=== PATIENT | female | born 1995 ===

== ENCOUNTER → 2017-07-30 | Outpatient (CLI) | payer OTHER ==
[~2017-07-30] MED LIST: AMO250L PO; DIPH0.5D12 IM; ETON1VAG7 VG; HYDEL PO; MIGRAINE PILL; NITR-105 PO; ONDA4TAB PO; PREN1TAB44; RIZA10TA PO; TOPI-120 PO
[2017-07-30 15:18] LABS: PLATELET COUNT, AUTOMATED 379 K/uL (150-450)
== END ==
LOC: LAB 13:34
PROVIDERS: ATTEND Student in an Organized Health Care Education/Training Program
DX: Z34.02 Encounter for supervision of normal first pregnancy, second trimester (principal)
CPT/HCPCS: 36415; 82950; 85025

== ENCOUNTER → 2017-10-09 | Outpatient (CLI) | payer OTHER | LOC: LAB 13:32 | PROVIDERS: ATTEND Student in an Organized Health Care Education/Training Program | DX: Z34.92 Encounter for supervision of normal pregnancy, unspecified, second trimester (principal) | CPT/HCPCS: 87081 ==

== ENCOUNTER 2017-10-18 09:42 | Inpatient (IN) | payer OTHER ==
[~2017-10-18] VITALS: Ht 149.9 cm; Wt 80.3 kg
[2017-10-18] MEDS ORDERED: ceFAZolin(*) 2GM/D5W 50ML 50 ML IVPB PRN (09:46)
[2017-10-18] MEDS ORDERED: FAMOTIDINE(*) 20MG/50ML PREMIX 50 ML IVPB PRN (09:46)
[2017-10-18] MEDS ORDERED: OXYTOCIN 30 UNIT/D5LR 500 ML 500 ML IV PRN ×2 (09:46)
[2017-10-18 09:50] VITALS: BP 114/73; Ht 149.9 cm; Wt 80.3 kg
[2017-10-18] MEDS ORDERED: FLUSH 10 ML SYR IVP PRN (09:50)
[2017-10-18] MEDS ORDERED: METOCLOPRAMIDE 10 MG/2 ML SDV IVP PRN (09:50)
[2017-10-18] MEDS ORDERED: LIDOCAINE/SOD BICARB 8.4% SYR SC PRN (09:50)
[2017-10-18] MEDS ORDERED: TERBUTALINE SULF 1 MG/ML VIAL SUBQ PRN (09:50)
[2017-10-18] MEDS ORDERED: fentaNYL CITR 100 MCG/2 ML AMP IVP PRN (09:50)
[2017-10-18] MEDS ORDERED: LIDOCAINE 1% LOCAL 300 MG/30ML INJ PRN (09:50)
[2017-10-18 10:14] LABS: PLATELET COUNT, AUTOMATED 318 K/uL (150-450)
[2017-10-18] MEDS: LR(*) 1000 ML BAG 1,000 ML IV SCH ×2 (11:25→20:15)
--- NOTE | 2017-10-18 11:47 | History & Physical ---
History of Present Illness Age of Patient: 22 : 1 Para or TPAL: 0 EDC per LMP: Nov 02, 2017 Estimated Gestational Age: 37.6 Chief Complaint Water broke History of Present Illness Pt is a 22 y/o @ 37-6/7 weeks gestation who presents to L&D after being sent from clinic for her water being broken. Pt reports her water may have broke last night around 5 pm. Denies any contractions. Good movement. No vaginal bleeding. History Patient's Blood Type: B Positive Rubella Status: Immune Group B Strep Screen: Negative Obstetrical History: Primigravid Past Medical History: Migraines Allergies: Coded Allergies: No Known Drug Allergies (Verified , 09/09/13) Social History: Denies ETOH, Rec drugs, or tobacco S/O Dirk Family History: FH: depression MOTHER Med Rec Home Meds Reported Medications Vit No.124/Iron/FA ( Vitamin Tablet) 1 Each Tablet, BID 07/30/17 Rizatriptan Benzoate (MAXALT) 10 Mg Tablet, 1 TAB PO PRN Y for HEADACHE 11/10/16 Review of Systems All Systems Reviewed/Normal: Yes, Except as Noted Constitutional: No Fever, No Weight Loss, No Weight Gain, No Chills, No Night Sweats, No Other Neurological: No Syncope, No Confusion, No Weakness, No Dizziness, No Slurred Speech, No Other Eyes: No Vision Change, No Loss of Vision, No Photophobia, No Other ENT: No Hearing Loss, No Sinus Congestion, No Sore Throat, No Ear Ache, No Tinnitus, No Other Cardiovascular: No Chest Pain, No Palpitations, No Orthostatic Hypotension, No Other Respiratory: No Shortness of Breath, No Cough, No Wheezing, No Other Gastrointestinal: No Nausea, No Vomiting, No Diarrhea, No Dysphagia, No Constipation, No Early Satiety, No Hematemesis, No Hematochezia, No Melena, No Abdominal Pain, No Other Genitourinary: No Dysuria, No Hematuria, No Urinary Incontinence, No Other Musculoskeletal: No Pain, No Sprain, No Strain, No Impaired Mobility, No Other Psychiatric: No Depression, No Anxiety, No Other Exam General Exam Vital Signs Vital Signs Date Time Temp Pulse Resp B/P (MAP) Pulse Ox O2 Delivery O2 Flow Rate FiO2 10/18/17 09:50 97.7 88 18 114/73 (87) Room Air General Apperance: Alert/Awake/No Acute Distress Neuro: No Gross deficits Eyes: Normal Extraocular Movement & Vison, PERRLA ENT: Normal Cardiovascular: Regular Rate and Rhythm Respiratory: No Respiratory Distress, Clear to Auscultation Abdomen: Soft, Non-Tender, Non-Distended : Normal Musculoskeletal: No Weakness/Pain Extremities: No Cyanosis,Clubbing or Edema Integumentary: Skin Intact without Lesions or Rash Psychological: Alert & Oriented X3, Appropriate Mood & Affect Vaginal Discharge/Fluid?: Clear Fluid Cervical Dialation: 1 Cervical Effacement (%): 50 Cervical Consistency: Soft Cervical Position: Mid Station: -3 Presentation: Vertex Uterine Contractions(Q min): 2 Uterine Contraction Strength: Mild UC Resting Tone: Soft Fetus Feeling Movement?: Yes Estimated Weight(grams): 3200 Heart Tones: 145 Heart Tone Variabilty: Moderate FHT Accelerations: 15X15 FHT Decelerations: None FHT Category: I Medical Decision Making Data Points Result Diagram: 10/18/17 1002 Pre-Admit Course Medical Record Review: Yes Assessment and Plan 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 GBS negative. Expect . DIRK HAYES DO Oct 18, 2017 11:47
--- NOTE | 2017-10-18 17:49 | Labor Progress Note ---
Labor Subjective Progress Notes Subjective Doing good. Reports she is starting to feel her contractions and having to breath through them. Still no epidural. Feeling Movement?: Yes Vaginal Discharge/Fluid: Bloody Show, Clear Fluid Labor Pain: Moderate Neurological: No Headache, No Other Eyes: No Visual Disturbances Labor Objective Vital Signs Vital Signs Date Time Temp Pulse Resp B/P (MAP) Pulse Ox O2 Delivery O2 Flow Rate FiO2 10/18/17 09:50 97.7 88 18 114/73 (87) Room Air Cervical Dialation: 2 Cervical Effacement (%): 60 Cervical Consistency: Soft Cervical Position: Mid Station: -2 Presentation: Vertex Uterine Contractions(Q min): 0 Uterine Contraction Strength: Moderate UC Resting Tone: Soft Fetus Heart Tones: 130 Heart Tone Variabilty: Minimal, Moderate FHT Accelerations: 15X15 FHT Decelerations: None FHT Category: I Other Result Diagram: 10/18/17 1002 Assessment and Plan 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 Continue to increase oxytocin to adaquete pattern. Pt will likely get epidural. If not making change consider internal monitors. DIRK HAYES DO Oct 18, 2017 17:49
[2017-10-18] MEDS ORDERED: EPIDURAL KEYS XX PRN (19:24)
[2017-10-18] MEDS ORDERED: fentaNYL CITR 100 MCG/2 ML AMP IT PRN (19:25)
[2017-10-18] MEDS ORDERED: FENTANYL/ROPIVACAINE 100 ML BAG EPI PRN (19:25)
[2017-10-18] MEDS ORDERED: BUPIVACAINE 0.5% INJ 30ML VIAL EPI PRN (19:25)
[2017-10-18] MEDS ORDERED: BUPIVACAINE 0.25% MPF INJ EPI PRN (19:25)
[2017-10-18] MEDS ORDERED: LIDOCAINE/PF 2% 200MG/10ML AMP 200 MG/10 ML AMPUL EPI PRN (19:25)
[2017-10-18] MEDS ORDERED: LIDO/EPI 2% MPF 1:200,000 20ML EPI PRN (19:25)
--- NOTE | 2017-10-18 19:26 | Anesthesia OB Pre-Anes Eval ---
History of Present Illness Anesthesia Start Date: Oct 18, 2017 Anesthesia Start Time: 19:25 OB Anesthesia Diagnosis: spontaneous ROM Complications: None known EDC: Nov 02, 2017 : 1 Para: 0 Vital Signs: Vital Signs Date Time Temp Pulse Resp B/P (MAP) Pulse Ox O2 Delivery O2 Flow Rate FiO2 10/18/17 09:50 97.7 88 18 114/73 (87) Room Air Pain Ratin Heart Tones: WNL Result Diagram: 10/18/17 1002 Height (Inches): 59.00 Weight (Pounds): 177 BMI Calculated: 35.75 Past Medical History Medical History: no pertinent history Surgical History: tonsillectomy Previous Anesthesia: general Hx Anesthesia Reactions: No Hx Family Anesthesia Reaction: No Current Medications: pitocin Home Meds Reported Medications Vit No.124/Iron/FA ( Vitamin Tablet) 1 Each Tablet, BID 07/30/17 Rizatriptan Benzoate (MAXALT) 10 Mg Tablet, 1 TAB PO PRN Y for HEADACHE 11/10/16 Allergies: Coded Allergies: No Known Drug Allergies (Verified , 09/09/13) Anesthesia OB ROS Neurological: migraines/headaches, No seizures, No neuropathy, No other ENT: Denies Tooth caps, Denies Loose teeth, Denies Chipped teeth, Denies Dentures, Denies Bridges, Denies Retainers, Denies Veneers, Denies Implants, Denies Tongue ring Pulmonary: No asthma, No smoker (pks/day/yrs) Airway Class: ll Cardiovascular ROS: No edema, No arrhythmia GI ROS: clear liquids Last Solids Date: Oct 18, 2017 Last Solids Time: 08:00 ROS: No Herpes, No STD(s), No Liver Disease, No Renal Disease Endocrine ROS: No diabetes, No gestational diabetes, No thyroid disorder Musculoskeletal ROS: No low back pain, No low back injury, No scoliosis, other ASA Classification: 2 Assessment and Plan Anesthesia Plan: CSE Assessment Past Medical, Surgical, Family and Obstetric Histories reviewed. Please see ACOG chart. Epidural anesthesia risks, complications and benefits explained to patient's satisfaction for labor and vaginal delivery and/or section. General anesthesia risks and benefits explained to patient's satisfaction. Questions invited, none asked. JUAN FARMER CRNA Oct 18, 2017 19:26
[2017-10-18] MEDS ORDERED: BUPIVACAINE 0.25% MPF INJ ONE (19:39)
[2017-10-18] MEDS ORDERED: fentaNYL CITR 100 MCG/2 ML AMP ONE (19:40)
[2017-10-18] MEDS ORDERED: FENTANYL/ROPIVACAINE 100ML BAG 100 ML ONE (19:41)
--- NOTE | 2017-10-18 20:46 | Procedure Note ---
Anesthetic Placement Note Anesthesia Plan: CSE Permit for Anesthesia Signed: Yes Anesthesia Technique: Patient Sitting Anesthesia Prep: Chlorhexidine Interspace: L 3-4 Local Anesthetic: 1% Lidocaine, 25 Gauge Needle Amount Local - cc's: 2 Anesthesia Needle: 17g Angelouhluke/Vinnie Loss of Resistance: Air Depth of NORA (cm): 6 Epidural Needle Placement: No CSF, No Blood, No Parasthesia Intrathecal Needle: 27 Gauge Pencan Cerebral Spinal Fluid: Yes, Clear Catheter Insertion (cm): 9 Catheter Type: Kyle - Spring Wound Epidural Dressing: Tegaderm, Tape, Adhesive [place] Anesthesia Tray: Lot Number ([id number]), Expiration Date (2018-11-16), Reference Number ([id number]) Anesthesia Medications: Intrathecal Dose: mcg Fentanyl (15), mg Marcaine MPF (1.75), Time (1946) Epidural Test Dose: 1.5 Lido/Epi (1:200,000), Dose - mL (3), Time (2008), Negative Epidural Loading Dose: 0.2% Ropivicaine, With Fentanyl 2mcg/ml, Dose - ml (5), Time (2011) Epidural Infusion: 0.2% Ropivicaine, With Fentanyl 2mcg/ml, Start Time: (2011) Epidural Pump Setting: Bolus Dose - mL (5), Lockout - Minutes (20), Maintenance Rate - mL/hr (5), Maximum per Hour - mL (20) Complications: None Comment: Pt. tolerated procedure very well. Became comfortable within 5-7 minutes after intrathecal injection. Pt. encouraged to sleep. JUAN FARMER CRNA Oct 18, 2017 20:46
--- NOTE | 2017-10-19 02:40 | Anesthesia Progress Note ---
Progress/Maintenance Anesthesia Note Date: Oct 19, 2017 Anesthesia Note Time: 02:20 Pain Intensity: 6 Pump: On Pump Rate (ML/HR): 5 Sensory Level: t-12 Motor Level: Bending Knees-Bilateral Dilatation: 5 Position: Right, Tilt Drug Bolus: 0.5% Marcaine (3 ML), Other (fENTENYL 50 MCGS) Assessment and Plan Assessment Comfort level has been managed with bolus per pump. First bolus provided adequate relief but not the second. Manual bolus given and pt. states she now feels much better. Laying on rt. side, which is the side she was feeling the strong contractions. JUAN FARMER MOTOR VEHICLE LIGHT ASSEMBLER Oct 19, 2017 02:40
[2017-10-19] MEDS: LR(*) 1000 ML BAG 1,000 ML IV SCH ×2 (03:48→11:46)
--- NOTE | 2017-10-19 04:38 | Anesthesia Progress Note ---
Progress/Maintenance Anesthesia Note Date: Oct 19, 2017 Anesthesia Note Time: 04:30 Pain Intensity: 6 Pump: On Pump Rate (ML/HR): 6 Sensory Level: T-12 Motor Level: Bending Knees-Bilateral Dilatation: 5 Position: Right, Tilt Drug Bolus: 0.5% Marcaine (3 ml), Other (Fentenyl 35 mcgs) Assessment and Plan Assessment Bolus given per pt's request for "low pressure". JUAN FARMER CRNA Oct 19, 2017 04:37
--- NOTE | 2017-10-19 06:35 | Anesthesia Progress Note ---
Progress/Maintenance Anesthesia Note Date: Oct 19, 2017 Anesthesia Note Time: 06:30 Pain Intensity: 5 Pump: On Pump Rate (ML/HR): 5 Sensory Level: T-12 Motor Level: Bending Knees-Bilateral Dilatation: 9 Position: Right, Tilt Drug Bolus: 0.5% Marcaine (4 ml) Assessment and Plan Assessment Manual bolus given for pt's "back pain". Able to rest inbetween contractions. JUAN FARMER CRNA Oct 19, 2017 06:35
--- NOTE | 2017-10-19 06:52 | Labor Progress Note ---
Labor Subjective Progress Notes Subjective Comfortable with epidural. Starting to feel pressure. No fevers or chills. Feeling Movement?: Yes Vaginal Discharge/Fluid: Clear Fluid Labor Pain: Mild Neurological: No Headache, No Other Eyes: No Visual Disturbances Labor Objective Vital Signs Vital Signs Date Time Temp Pulse Resp B/P (MAP) Pulse Ox O2 Delivery O2 Flow Rate FiO2 10/18/17 09:50 97.7 88 18 114/73 (87) Room Air Cervical Dialation: 9 Cervical Effacement (%): 100 Cervical Consistency: Soft Cervical Position: Anterior Station: -1 Uterine Contractions(Q min): 2 Uterine Contraction Strength: Moderate UC Resting Tone: Soft Fetus Heart Tones: 135 Heart Tone Variabilty: Moderate FHT Accelerations: 15X15 FHT Decelerations: Early FHT Category: I Other Result Diagram: 10/18/17 1002 Assessment and Plan 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 Did remain at 4 cm for 4 hours but oxytocin wasn't adaquete. Next check patient was 8 cm with FHR showing signs of head compression. Pt to get to complete and start pushing soon. Problem Qualifiers (1) Premature rupture of membranes: PROM onset of labor timing: onset of labor more than 24 hours following rupture DIRK HAYES DO Oct 19, 2017 06:52
[2017-10-19] MEDS ORDERED: METHYLERGONOVINE MAL 0.2MG/ML ONE (09:22)
--- NOTE | 2017-10-19 10:42 | Labor Progress Note ---
Labor Subjective Progress Notes Subjective Patient's complete. Does feel pain with contractions desires to push. Feeling Movement?: Yes Vaginal Discharge/Fluid: Clear Fluid Labor Pain: Mild Eyes: No Visual Disturbances Labor Objective Vital Signs Vital Signs Date Time Temp Pulse Resp B/P (MAP) Pulse Ox O2 Delivery O2 Flow Rate FiO2 10/18/17 09:50 97.7 88 18 114/73 (87) Room Air Cervical Dialation: 10 Cervical Effacement (%): 100 Station: +2 Presentation: Vertex Uterine Contractions(Q min): 2 Other Result Diagram: 10/18/17 1002 Assessment and Plan Problems: (1) Premature rupture of membranes Assessment & Plan: Nursing staff to transit coach operator the patient and begin pushing. Problem Qualifiers (1) Premature rupture of membranes: PROM onset of labor timing: onset of labor more than 24 hours following rupture DIRK HAYES DO Oct 19, 2017 10:42
--- NOTE | 2017-10-19 11:08 | Anesthesia Progress Note ---
Progress/Maintenance Anesthesia Note Date: Oct 19, 2017 Anesthesia Note Time: 11:00 Pain Intensity: 2 Pump: On Pump Rate (ML/HR): 5 Sensory Level: T-12 Motor Level: Other (Attempting to push) Dilatation: 10 Position: Semi-Fowlers Drug Bolus: 0.5% Marcaine (3 ml) Assessment and Plan Assessment Pt. states she is in pain even when not having a contractions. Small manual bolus of Fentenyl 50 mcgs and 3 ml 0.5% Marcaine pl given. Within one contraction, pt. began to relax in between contractions and continued to attempt to push. JUAN FARMER CRNA Oct 19, 2017 11:08
[2017-10-19] MEDS ORDERED: MAGNESIUM HYDROXIDE* 30ML UDCP PO PRN (13:40)
[2017-10-19] MEDS ORDERED: BENZOCAINE 20% 60 ML BTL TP PRN (13:40)
[2017-10-19] MEDS ORDERED: HYDROCORTISONE 2.5% CR 30GM TB PR PRN (13:40)
[2017-10-19] MEDS ORDERED: GLYCERIN/WITCH HAZEL LEAF 1 PK TP PRN (13:40)
[2017-10-19] MEDS ORDERED: APAP/HYDROCODONE 325/5 TAB PO PRN (13:40)
[2017-10-19] MEDS ORDERED: LANOLIN OINT 7 GM TUBE TP PRN (13:40)
[2017-10-19] MEDS ORDERED: ACETAMINOPHEN 325 MG TAB PO PRN (13:40)
[2017-10-19] MEDS ORDERED: INFLUENZA VIRUS VAC 0.5 ML SYR IM ONLY ONE (13:40)
--- NOTE | 2017-10-19 13:52 | OB Delivery Note ---
Delivery Note Vaginal Delivery Type: Spont. Vaginal Delivery Delivery Date: Oct 19, 2017 Delivery Time: 12:12 Estimated Gestational Age(wks): 38.0 Length of Labor Stage I (hrs): 24 Length of Labor Stage II (hrs): 3.5 Labor Stage III (minutes): 4 Delivery Anesthesia: Epidural Infant Sex: Male Infant Weight (gms): 3330 (7#5oz) Amorita Apgars: 1 Minute (2), 5 Minute (4), 10 Minute (7) Repair Needed: 2nd Degree Estimated Blood Loss: 500 Protozoologist in Attendence: Yes DIRK HAYES DO Oct 19, 2017 13:52
[2017-10-19] MEDS ORDERED: IBUP800T37 PO (13:54)
[2017-10-19] MEDS ORDERED: LOR5/325 PO (13:54)
--- NOTE | 2017-10-19 13:58 | OB/GYN Discharge Summary ---
Discharge Summary Reason for Hosp/Final Diag: (1) Premature rupture of membranes Status: Resolved Hospital Course & Plan: Presented to clinic with LOF. Was found to be grossly ruptured. She was sent to L&D and was started on Oxytocin. After 24 hours of oxytocin she eventually was noted to be complete and plus 2. Pt pushed for 3 hours with out any problems. Was afebrile during her antepartum care. Did spike one fever 2 hours after delivery. Remained in the hospital for 2 days post . Lates Vital Signs Vital Signs Date Time Temp Pulse Resp B/P (MAP) Pulse Ox O2 Delivery O2 Flow Rate FiO2 10/18/17 09:50 97.7 88 18 114/73 (87) Room Air Weight (Pounds): 177 Result Diagram: 10/18/17 1002 Condition: Improved Discharge: Home Home Meds Active Scripts Hydrocodone Bit/Acetaminophen (HYDROCODON-ACETAMINOPHEN 5-325) 1 Each Tablet, 1 EACH PO Q4H Y for PAIN, #20 TAB 0 Refills Prov:DIRK HAYES DO 10/19/17 Ibuprofen (IBUPROFEN) 800 Mg Tablet, 800 MG PO Q8H, #30 TAB 0 Refills Prov:DIRK HAYES DO 10/19/17 Reported Medications Vit No.124/Iron/FA ( Vitamin Tablet) 1 Each Tablet, BID 07/30/17 Rizatriptan Benzoate (MAXALT) 10 Mg Tablet, 1 TAB PO PRN Y for HEADACHE 11/10/16 Follow up with: [facility] [phone], Dr. Hayes [phone] Follow up in: 2 wks PO Discharge Diet: As Tolerates, Resume Prior Admit Diet Discharge Activity: As Tolerates, Pelvic Rest Problem Qualifiers (1) Premature rupture of membranes: PROM onset of labor timing: onset of labor more than 24 hours following rupture DIRK HAYES DO Oct 19, 2017 13:58
--- NOTE | 2017-10-19 14:06 | Anesthesia Progress Note ---
Progress/Maintenance Anesthesia Note Date: Oct 19, 2017 Anesthesia Note Time: 14:00 Pain Intensity: 5 Pump: On Pump Rate (ML/HR): 6 Motor Level: Bending Knees-Bilateral Dilatation: 10 Position: Semi-Fowlers Drug Bolus: 0.5% Marcaine (3 ml), Other (Fentenyl 50 mcgs) Assessment and Plan Assessment At 1100 , manual bolus given per pt's request, states she is uncomfortable during pushing and also in between contractions. JUAN FARMER CRNA Oct 19, 2017 14:06
--- NOTE | 2017-10-19 14:09 | Anesthesia Progress Note ---
Progress/Maintenance Anesthesia Note Date: Oct 19, 2017 Anesthesia Note Time: 12:35 Pain Intensity: 0 Pump: Off Sensory Level: T-12 Motor Level: Bending Knees-Bilateral Dilatation: 10 Position: Semi-Fowlers Assessment and Plan Assessment No further medication was given. Pt. was able to push well and had excellent tolerance of delivery. Empty syringe attached to epidural catheter and RN agrees to remove with ambulation. Patient instructed the first ambulation is to be with help of nursing staff. Instructed to preform deep knee bends at bedside before walking. Anesthesia Stop Day: Oct 19, 2017 Anesthesia Stop Time: 12:35 JUAN FARMER CRNA Oct 19, 2017 14:08
[2017-10-19] MEDS ORDERED: LIDOCAINE 1% LOCAL 300 MG/30ML INJ ONE (14:10)
[2017-10-19] MEDS ORDERED: MISOPROSTOL 200 MCG TAB PO ONE (14:10)
[2017-10-19] MEDS ORDERED: METHYLERGONOVINE MAL 0.2MG/ML IM ONE (14:10)
[2017-10-19] MEDS ORDERED: IBUPROFEN 800 MG TAB PO SCH (15:00)
--- NOTE | 2017-10-19 15:13 | DELIVERY NOTE ---
DELIVERY DATE: October 19, 2017 SURGEON: Mauro Young DO ANESTHESIA: Epidural with 7 cc of 1% Lidocaine for repair only. PREOPERATIVE DIAGNOSIS 1. 22-year-old 1, para 0 at 38 and 0/7 weeks gestation. 2. Prolonged premature rupture of membranes. POSTOPERATIVE DIAGNOSIS 1. 22-year-old 1, para 0 at 38 and 0/7 weeks gestation. 2. Prolonged premature rupture of membranes. 3. Delivered. PROCEDURE Spontaneous vaginal delivery with repair of second-degree midline laceration. FINDINGS Live-born male at 1212 with Apgars of 2, 4, and 7, weighing 3330 grams, 7 pounds, 5 ounces, three-vessel cord, intact placenta over a second-degree midline laceration. ESTIMATED BLOOD LOSS 500 cc. PATHOLOGY None COMPLICATIONS hemorrhage. CONDITION Stable x 2, mother and infant to remain in the LDRP. COUNTS Correct for all needles, laps, sponges, and instruments. LABOR SUMMARY The patient is a 22-year-old 1, para 0 who presented to the clinic on October with a chief complain of, "Loss of amniotic fluid". She was found be grossly ruptured. The patient reports being ruptured since October 17, 2017 at 1700 hours. The patient was initially checked and found to be 1 cm. She was noted to be GBS negative, so she was started on Oxytocin for premature rupture. Once the contractions were adequate the Oxytocin was maintained. The patient made slow change and remained 4 cm for approximately 4 hours. The Oxytocin had no made no change at that point so it was increased. With the increase in Oxytocin the patient did make adequate cervical change from 4 to 8 cm. She eventually requested an epidural for pain control. After the epidural was given, she was noted to be 8 cm. She continued to progress this time with category I strip. The patient was noted to be complete around 9: 00 a.m. on October 19, 2017 and +2 station. At this point the nursing staff coached the patient on pushing and after approximately 3 hours of pushing the delivery team was called and assembled. DELIVERY SUMMARY The patient was placed in the dorsal lithotomy position. Upon maternal pushing , significant infant crown was noted. This delivered over a second-degree midline laceration. At this point the anterior shoulder was delivered with gentle downward motion, the posterior shoulder with gentle upward motion with the remainder of the infant's body delivered spontaneously. Mouth and nose were bulb suctioned. The did make a few attempts at crying with vigorous stimulation but after a minute there was minimal stimulation. The infant's cord was clamped x 2 and cut by the 's father and then quickly taken to the warmer to be attended to by the SUPERVISOR AGRICULTURAL EDUCATION and nursing staff. At this point cord blood gas was obtained. The placenta delivered spontaneously with gentle cord traction. Because of patient having prolonged rupture and Oxytocin , we decided to aggressively manage her with Oxytocin. After the placenta delivery it was noted that there was significant gushing fluid. The patient did receive 0.2 mg of IM Methergine in left thigh. She also received 600 mcg of Misoprostol p.o. With continued bimanual massage, the uterus was noted to be firm and bleeding was minimal. At this point attention was turned inspecting the perineum. Upon inspection of the perineum, vagina, cervix, and labia, it was noted that there was a second-degree midline laceration. This was repaired with a 3-0 Vicryl in a running manner. With laceration inspected, it was noted to be hemostatic. The patient was cleaned, her bed was reassembled. She was allowed to continue to choi with her . [facility]ITALPeter
[2017-10-19 15:15] VITALS: BP 121/74
[2017-10-19 19:56] VITALS: BP 101/57
[2017-10-19] MEDS: DOCUSATE CALCIUM 240 MG CAP PO SCH (21:34)
[2017-10-20 00:32] VITALS: BP 103/68
[2017-10-20] MEDS: IBUPROFEN 800 MG TAB PO SCH ×3 (01:02→17:15)
[2017-10-20 03:24] VITALS: BP 108/59
--- NOTE | 2017-10-20 07:42 | OB/GYN Progress Note ---
OB Subjective Progress Notes Subjective Doing good this morning. Reports pain controlled with po pain medication, some tenderness. Tolerating regular diet. Voiding with out any difficulty. Bleeding appropriate. Ambulatory. GI: NEG Nausea, NEG Vomiting, NEG Flatus, NEG Bowel Movement : Voiding Well, Vaginal Bleeding, Moderate Pain: Mild Neurological: No Headache, No Other Eyes: No Visual Disturbances OB Objective Physical Exam Vital Signs Date Time Temp Pulse Resp B/P (MAP) Pulse Ox O2 Delivery O2 Flow Rate FiO2 10/20/17 03:24 97.7 62 18 108/59 (75) Room Air General Appearance: Alert/Awake/No Acute Distress Neurological: No Gross deficits Eyes: Normal Extraocular Movement & Vison, PERRLA ENT: Normal Neck: No Masses Cardiovascular: Normal Rhythm & Peripheral Pulses, Regular Rate and Rhythm Respiratory: No Respiratory Distress, Clear to Auscultation Abdomen: Soft, Non-Tender, Non-Distended, Fundus Firm Extremities: No Cyanosis,Clubbing or Edema Integumentary: Skin Intact without Lesions or Rash Psychological: Alert & Oriented X3, Appropriate Mood & Affect Result Diagram: 10/20/17 0614 Assessment and Plan 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 Having difficulty with and will plan on staying an additional night. Problem Qualifiers (1) Premature rupture of membranes: PROM onset of labor timing: onset of labor more than 24 hours following rupture DIRK HAYES DO Oct 20, 2017 07:42
[2017-10-20 08:23] VITALS: BP 106/64
[2017-10-20] MEDS: DOCUSATE CALCIUM 240 MG CAP PO SCH ×2 (09:07→21:47)
--- NOTE | 2017-10-20 14:16 | Anesthesia Post Eval Note ---
Anesthesia Post Eval Note Stabil, afebrile. Pt able to participate in Eval: Yes Cardiovascular Status: Satisfactory Respiratory Status: Satisfactory Pain Managment: Satisfactory PO Nausea/Vomiting: Satisfactory Temperature Management: Satisfactory Mental Status: Satisfactory, Alert, Oriented X3 Post-Op Hydration Status: Satisfactory, Tolerating PO Well, Voiding w/o Difficulty Anesthesia Type: CSE Anesthesia Tolerance: Ambulatory without symptoms PDPH, no apparent complications. JENNIFER ZALDIVAR CRNA Oct 20, 2017 14:16
[2017-10-20 20:00] VITALS: BP 108/55
[2017-10-21] MEDS: IBUPROFEN 800 MG TAB PO SCH ×2 (01:09→09:00)
[2017-10-21 02:30] VITALS: BP 114/68
[2017-10-21 08:15] VITALS: BP 112/71
[2017-10-21] MEDS ORDERED: MEASLES,MUMP,RUBELLA VAC 0.5ML SUBQ ONE (09:00)
[2017-10-21] MEDS ORDERED: DIPHTH/TETANUS/ACEL. PERTUSSIS IM ONLY ONE (09:00)
[2017-10-21] MEDS: DOCUSATE CALCIUM 240 MG CAP PO SCH (09:00)
--- NOTE | 2017-10-21 12:17 | OB/GYN Progress Note ---
OB Subjective Progress Notes Subjective Doing good this afternoon. Tolerating regular diet. Voiding with out any difficulty. Ambulatory. Lochia appropriate. doing better today. GI: NEG Nausea, NEG Vomiting, NEG Flatus, NEG Bowel Movement : Voiding Well, Vaginal Bleeding, Scant Pain: Mild, Tolerating PO Pain Meds Neurological: No Headache, No Other Eyes: No Visual Disturbances OB Objective Physical Exam Vital Signs Date Time Temp Pulse Resp B/P (MAP) Pulse Ox O2 Delivery O2 Flow Rate FiO2 10/21/17 02:30 98.0 69 18 114/68 (83) 98 Room Air Intake and Output 10/22/17 07:00 Intake Total 240 ml Balance 240 ml Intake Oral 240 ml General Appearance: Alert/Awake/No Acute Distress Neurological: No Gross deficits Eyes: Normal Extraocular Movement & Vison, PERRLA ENT: Normal Neck: No Masses Cardiovascular: Normal Rhythm & Peripheral Pulses, Regular Rate and Rhythm Respiratory: No Respiratory Distress, Clear to Auscultation Abdomen: Soft, Non-Tender, Non-Distended, Fundus Firm Extremities: No Cyanosis,Clubbing or Edema Integumentary: Skin Intact without Lesions or Rash Psychological: Alert & Oriented X3, Appropriate Mood & Affect Result Diagram: 10/20/17 0614 Assessment and Plan 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 Follow up in 2-3 weeks for eval. Problem Qualifiers (1) Premature rupture of membranes: PROM onset of labor timing: onset of labor more than 24 hours following rupture DIRK HAYES DO Oct 21, 2017 12:17
== END 2017-10-21 14:20 | disposition home or self-care (01) | DRG 774 ==
LOC: OB 09:42
PROVIDERS: ADMIT Student in an Organized Health Care Education/Training Program; ATTEND Student in an Organized Health Care Education/Training Program
PROC: 3E033VJ Introduction of Other Hormone into Peripheral Vein, Percutaneous Approach (ICD-10-PCS; 2017-10-18)
PROC: 10E0XZZ Delivery of Products of Conception, External Approach (ICD-10-PCS; principal; 2017-10-19)
PROC: 0KQM0ZZ Repair Perineum Muscle, Open Approach (ICD-10-PCS; 2017-10-19)
DX: O42.12 Full-term premature rupture of membranes, onset of labor more than 24 hours following rupture (principal); O86.4 Pyrexia of unknown origin following delivery; Z37.0 Single live birth; O70.1 Second degree perineal laceration during delivery; Z3A.38 38 weeks gestation of pregnancy
CPT/HCPCS: 36415; 85025; 85027; 86850; 86900; 86901; J2001; J2210; J2590; J3010; J7120; S0020